=== PATIENT | male | born 1940 | race African-American/Black ===

== ENCOUNTER 2018-05-01 14:58 | Inpatient (IN) | payer OTHER ==
[~2018-05-01] VITALS: Ht 177.8 cm; Wt 83.5 kg
[2018-05-01 15:40] LABS: Basophils # (auto) 0 uL; Basophils % (auto) 0.3 % (0.0-2.0); Eosinophils # (auto) 0 uL; Hematocrit 35.6 % (41.0-53.0); Hemoglobin 11.6 g/dL (13.5-17.5); Mean Corpuscular Hgb Conc. 32.6 g/dL (32.0-36.0)
[2018-05-01 15:41] LABS: Eosinophils % (auto) 0.5 % (0.0-7.0); Lymphocytes % (auto) 12.2 % (10.0-50.0); Mean Corpuscular Hemoglobin 29.3 pg (28.0-32.0); Mean Corpuscular Volume 89.8 fL (80.0-100.0); Monocytes # (auto) 0.4 uL; Monocytes % (auto) 5.6 % (0.0-12.0); Neutrophils # (auto) 6.4 uL; Neutrophils % (auto) 81.4 % (37.0-80.0); Nucleated Red Blood Cells % 0.1 %; Platelet Count (auto) 58 10^3/uL (140-450); Red Blood Cells 3.97 10^6/uL (4.5-5.90); Red Cell Distribution Width 15.9 % (11.8-14.3); White Blood Cell 7.9 10^3/uL (4.4-10.8)
[2018-05-01 15:55] LABS: INR 1.95 (0.9-1.15); Partial Thromboplastin Time 36.1 sec (23.78-33.04); Prothrombin Time 20.1 sec (9.27-12.13)
[2018-05-01 16:00] LABS: Albumin 3.4 g/dL (3.4-5.0); BUN/Creatinine Ratio 5.9; Bilirubin, Total 0.8 mg/dL (0.2-1.0); Calcium 8.9 mg/dL (8.5-10.1); Magnesium 2.6 mg/dL (1.6-2.6); Potassium 4.4 mmol/L (3.5-5.1)
[2018-05-01] MEDS ORDERED: DEXTROSE (50%) 50ML SYRG IV PRN (16:45)
[2018-05-01] MEDS ORDERED: ONDANSETRON HCL 4 MG/2 ML VIAL IV PRN (16:45)
[2018-05-01] MEDS ORDERED: MORPHINE SULF INJ 2 MG/ML SYRINGE 1ML IV PRN (16:45)
[2018-05-01] MEDS ORDERED: NITROGLYCERIN 0.4 MG SL TAB SL PRN (16:45)
[2018-05-01] MEDS ORDERED: LOSARTAN POTASSIUM 50 MG TAB PO ONE (17:15)
[2018-05-01] MEDS: InsuLIN REG 1unit/0.01ml Soln (100units/ml) SC SCH (18:00)
[2018-05-01] MEDS: CALCIUM ACETATE 667 MG CAP PO SCH (18:24)
[2018-05-01] MEDS: ACCU-CHEK COMFORT CURVE STRIP VI SCH (18:26)
[2018-05-01 20:00] VITALS: BP 149/89
[2018-05-01] MEDS ORDERED: WARFARIN SODIUM 10 MG TAB PO ONE (20:00)
[2018-05-01 21:45] VITALS: BP 149/89
[2018-05-01] MEDS: CARVEDILOL 12.5 MG TAB PO SCH (21:59)
[2018-05-01] MEDS: ATORVASTATIN 20 MG TAB PO SCH (22:00)
[2018-05-01 22:20] LABS: Urine Bacteria NONE SEEN /hpf (None Seen); Urine Blood TRACE /uL (Negative); Urine Specific Gravity 1.009 (1.001-1.035); Urine WBC 2 /hpf (0 - 3)
[2018-05-01] MEDS ORDERED: WARF1TAB PO (23:46)
[2018-05-01] MEDS ORDERED: ATOR10TA PO (23:46)
[2018-05-01] MEDS ORDERED: LOSA25TA9 PO (23:46)
[2018-05-01] MEDS ORDERED: CALC667C5 PO (23:46)
[2018-05-01] MEDS ORDERED: CAR3125T PO (23:46)
[2018-05-02] MEDS: ACCU-CHEK COMFORT CURVE STRIP VI SCH ×5 (00:09→23:57)
[2018-05-02] MEDS: InsuLIN REG 1unit/0.01ml Soln (100units/ml) SC SCH ×5 (00:10→23:57)
[2018-05-02 05:00] VITALS: BP 138/61
[2018-05-02 06:17] LABS: Basophils # (auto) 0 uL; Basophils % (auto) 0.5 % (0.0-2.0); Eosinophils # (auto) 0 uL; Hemoglobin 11.9 g/dL (13.5-17.5); Lymphocytes # (auto) 1.1 uL; Lymphocytes % (auto) 17.5 % (10.0-50.0); Mean Corpuscular Hemoglobin 29.5 pg (28.0-32.0); Mean Corpuscular Volume 89.4 fL (80.0-100.0); Monocytes # (auto) 0.7 uL; Monocytes % (auto) 10.4 % (0.0-12.0); Neutrophils # (auto) 4.7 uL; Neutrophils % (auto) 71.6 % (37.0-80.0); Nucleated Red Blood Cells % 0.1 %; Platelet Count (auto) 79 10^3/uL (140-450); Red Blood Cells 4.02 10^6/uL (4.5-5.90); Red Cell Distribution Width 15.7 % (11.8-14.3); White Blood Cell 6.5 10^3/uL (4.4-10.8)
[2018-05-02 06:30] LABS: INR 2.07 (0.9-1.15); Prothrombin Time 21.3 sec (9.27-12.13)
[2018-05-02 06:32] LABS: Potassium 5.2 mmol/L (3.5-5.1)
[2018-05-02 06:33] LABS: BUN/Creatinine Ratio 6.2; Calcium 9.3 mg/dL (8.5-10.1)
[2018-05-02 07:49] VITALS: BP 136/73
[2018-05-02] MEDS: CALCIUM ACETATE 667 MG CAP PO SCH ×3 (07:56→18:29)
[2018-05-02] MEDS: CARVEDILOL 12.5 MG TAB PO SCH ×2 (07:56→22:04)
[2018-05-02] MEDS: LOSARTAN POTASSIUM 50 MG TAB PO SCH (07:57)
[2018-05-02 12:13] VITALS: BP 120/75
[2018-05-02] MEDS ORDERED: cefTRIAXone 1GM/10ml IVPUSH 10 ML IV ONE (12:45)
[2018-05-02] MEDS ORDERED: AZITHROMYCIN 500MG/ 250ML 250 ML IV ONE (12:45)
[2018-05-02] MEDS ORDERED: WARFARIN SODIUM 10 MG TAB PO ONE (17:00)
[2018-05-02 17:18] VITALS: BP 111/62
[2018-05-02 21:07] VITALS: BP 124/82
[2018-05-02] MEDS: ATORVASTATIN 20 MG TAB PO SCH (22:03)
[2018-05-03] VITALS (7 sets, daily range): BP systolic 109–144; BP diastolic 69–98
[2018-05-03] MEDS: ACCU-CHEK COMFORT CURVE STRIP VI SCH ×3 (05:56→17:42)
[2018-05-03] MEDS: InsuLIN REG 1unit/0.01ml Soln (100units/ml) SC SCH ×3 (05:56→17:42)
[2018-05-03 06:01] LABS: INR 3.18 (0.9-1.15); Prothrombin Time 31.9 sec (9.27-12.13)
[2018-05-03] MEDS: CALCIUM ACETATE 667 MG CAP PO SCH ×3 (08:15→18:18)
[2018-05-03] MEDS: cefTRIAXone 1GM/10ml IVPUSH 10 ML IV SCH (08:16)
[2018-05-03 10:10] LABS: Basophils # (auto) 0 uL; Eosinophils # (auto) 0 uL; Hematocrit 34.7 % (41.0-53.0); Hemoglobin 11.3 g/dL (13.5-17.5); Mean Corpuscular Hgb Conc. 32.6 g/dL (32.0-36.0); Monocytes # (auto) 0.8 uL
[2018-05-03 10:12] LABS: Basophils % (auto) 0.7 % (0.0-2.0); Eosinophils % (auto) 0.8 % (0.0-7.0); Lymphocytes # (auto) 1.2 uL; Lymphocytes % (auto) 22.2 % (10.0-50.0); Mean Corpuscular Hemoglobin 29.2 pg (28.0-32.0); Mean Corpuscular Volume 89.5 fL (80.0-100.0); Monocytes % (auto) 14.1 % (0.0-12.0); Neutrophils # (auto) 3.5 uL; Neutrophils % (auto) 62.2 % (37.0-80.0); Nucleated Red Blood Cells % 0.3 %; Platelet Count (auto) 61 10^3/uL (140-450); Red Blood Cells 3.88 10^6/uL (4.5-5.90); Red Cell Distribution Width 16.3 % (11.8-14.3); White Blood Cell 5.6 10^3/uL (4.4-10.8)
[2018-05-03 10:27] LABS: Albumin 3.2 g/dL (3.4-5.0); BUN/Creatinine Ratio 5.4; Bilirubin, Total 0.5 mg/dL (0.2-1.0); Calcium 8.8 mg/dL (8.5-10.1); Potassium 4.6 mmol/L (3.5-5.1); Total Protein 6.7 g/dL (6.4-8.2)
[2018-05-03] MEDS ORDERED: SODIUM CHL 0.9% 1000 ML BAG XX ONE (12:00)
[2018-05-03] MEDS: LOSARTAN POTASSIUM 50 MG TAB PO SCH (12:34)
[2018-05-03] MEDS: AZITHROMYCIN 500MG/ 250ML 250 ML IV SCH (12:34)
[2018-05-03] MEDS: CARVEDILOL 12.5 MG TAB PO SCH ×2 (12:35→22:22)
[2018-05-03] MEDS: ACETAMINOPHEN 500 MG TAB PO PRN (13:52)
[2018-05-03] MEDS: ATORVASTATIN 20 MG TAB PO SCH (22:22)
[2018-05-04] MEDS: InsuLIN REG 1unit/0.01ml Soln (100units/ml) SC SCH ×4 (01:00→18:00)
[2018-05-04] MEDS: ACCU-CHEK COMFORT CURVE STRIP VI SCH ×4 (01:00→18:03)
[2018-05-04 05:13] VITALS: BP 134/69
[2018-05-04 08:30] VITALS: BP 158/84
[2018-05-04] MEDS: CALCIUM ACETATE 667 MG CAP PO SCH ×3 (08:37→18:20)
[2018-05-04] MEDS: cefTRIAXone 1GM/10ml IVPUSH 10 ML IV SCH (08:46)
[2018-05-04] MEDS: AZITHROMYCIN 500MG/ 250ML 250 ML IV SCH (09:57)
[2018-05-04] MEDS: LOSARTAN POTASSIUM 50 MG TAB PO SCH (09:58)
[2018-05-04] MEDS: CARVEDILOL 12.5 MG TAB PO SCH (09:58)
[2018-05-04] MEDS: ACETAMINOPHEN 500 MG TAB PO PRN (10:16)
[2018-05-04 13:18] VITALS: BP 102/66
[2018-05-04 16:33] VITALS: BP 124/69
== END 2018-05-04 20:00 | disposition short-term general hospital (02) | DRG 871 ==
LOC: ER 14:58 → TELE 14:59 → TELE-EAST 20:00
PROVIDERS: ADMIT Internal Medicine; ATTEND Family Medicine
PROC: 5A1D70Z Performance of Urinary Filtration, Intermittent, Less than 6 Hours Per Day (ICD-10-PCS; principal; 2018-05-02)
PROC: 5A1D70Z Performance of Urinary Filtration, Intermittent, Less than 6 Hours Per Day (ICD-10-PCS; 2018-05-03)
DX: A41.9 Sepsis, unspecified organism (principal); G93.41 Metabolic encephalopathy; I50.43 Acute on chronic combined systolic (congestive) and diastolic (congestive) heart failure; N18.6 End stage renal disease; J18.9 Pneumonia, unspecified organism; I13.2 Hypertensive heart and chronic kidney disease with heart failure and with stage 5 chronic kidney disease, or end stage renal disease; E78.5 Hyperlipidemia, unspecified; E87.5 Hyperkalemia; D69.6 Thrombocytopenia, unspecified; E11.22 Type 2 diabetes mellitus with diabetic chronic kidney disease; E78.00 Pure hypercholesterolemia, unspecified; E87.8 Other disorders of electrolyte and fluid balance, not elsewhere classified; F17.200 Nicotine dependence, unspecified, uncomplicated; I05.0 Rheumatic mitral stenosis; I48.91 Unspecified atrial fibrillation; I25.10 Atherosclerotic heart disease of native coronary artery without angina pectoris; Z99.2 Dependence on renal dialysis
CPT/HCPCS: 36415; 70450; 71045; 80048; 80053; 81001; 82962; 83036; 83735; 83880; 84484; 85025; 85610; 85730; 87040; 87081; 90935; 93005; 93306; 93970; J0696; J1815; J2405

== ENCOUNTER 2018-05-10 16:50 | Emergency (ER) | payer OTHER ==
[~2018-05-10] VITALS: Ht 177.8 cm; Wt 81.6 kg
[~2018-05-10 16:50] MED LIST: ATOR10TA PO; CALC667C5 PO; CAR3125T PO; LOSA25TA9 PO; WARF1TAB PO
[2018-05-10 17:15] VITALS: BP 154/100
[2018-05-10 17:30] LABS: Basophils # (auto) 0.1 uL; Eosinophils # (auto) 0.1 uL; Mean Corpuscular Hemoglobin 29.2 pg (28.0-32.0); Monocytes # (auto) 0.8 uL; Nucleated Red Blood Cells % 0.3 %; Platelet Count (auto) 53 10^3/uL (140-450)
[2018-05-10 17:32] LABS: Basophils % (auto) 1.3 % (0.0-2.0); Eosinophils % (auto) 1.6 % (0.0-7.0); Hematocrit 36.5 % (41.0-53.0); Lymphocytes # (auto) 1.2 uL; Lymphocytes % (auto) 16.9 % (10.0-50.0); Mean Corpuscular Hgb Conc. 32.8 g/dL (32.0-36.0); Monocytes % (auto) 11.2 % (0.0-12.0); Neutrophils # (auto) 4.8 uL; Red Cell Distribution Width 16.4 % (11.8-14.3)
[2018-05-10 17:42] LABS: INR 1.58 (0.9-1.15); Partial Thromboplastin Time 31.4 sec (23.78-33.04); Prothrombin Time 16.5 sec (9.27-12.13)
[2018-05-10 17:44] LABS: Albumin 3.3 g/dL (3.4-5.0); Calcium 8.6 mg/dL (8.5-10.1); Potassium 3.9 mmol/L (3.5-5.1)
[2018-05-10 17:47] LABS: BUN/Creatinine Ratio 5.8
[2018-05-10 17:53] LABS: Bilirubin, Total 0.8 mg/dL (0.2-1.0); Total Protein 7.1 g/dL (6.4-8.2)
== END 2018-05-10 20:33 | disposition left against medical advice (07) ==
LOC: EDBD 16:50 → ER 16:50
DX: G93.41 Metabolic encephalopathy (principal); I48.91 Unspecified atrial fibrillation; I12.0 Hypertensive chronic kidney disease with stage 5 chronic kidney disease or end stage renal disease; E11.22 Type 2 diabetes mellitus with diabetic chronic kidney disease; N18.6 End stage renal disease
CPT/HCPCS: 36415; 70450; 71045; 80053; 83880; 84484; 85025; 85610; 85730

== ENCOUNTER 2018-08-07 07:23 | Emergency (ER) | payer OTHER ==
[~2018-08-07] VITALS: Ht 177.8 cm; Wt 79.4 kg
[~2018-08-07 07:23] MED LIST changes: +LOSA25TA40 PO; -LOSA25TA9 PO
[2018-08-07] MEDS ORDERED: ONDANSETRON HCL 4 MG/2 ML VIAL IV ONE (08:30)
[2018-08-07 09:37] LABS: Basophils # (auto) 0.1 uL; Eosinophils # (auto) 0 uL; Eosinophils % (auto) 0.4 % (0.0-7.0); Hematocrit 36.8 % (41.0-53.0); Lymphocytes # (auto) 0.6 uL; Mean Corpuscular Hemoglobin 28.9 pg (28.0-32.0); Mean Corpuscular Hgb Conc. 32.6 g/dL (32.0-36.0); Mean Corpuscular Volume 88.8 fL (80.0-100.0); Monocytes # (auto) 0.6 uL; Monocytes % (auto) 8.2 % (0.0-12.0); Neutrophils # (auto) 5.6 uL; Neutrophils % (auto) 81.4 % (37.0-80.0); Nucleated Red Blood Cells % 0.1 %; Platelet Count (auto) 113 10^3/uL (140-450); Red Blood Cells 4.14 10^6/uL (4.5-5.90); Red Cell Distribution Width 19.4 % (11.8-14.3); White Blood Cell 6.9 10^3/uL (4.4-10.8)
[2018-08-07 09:57] LABS: Albumin 3.7 g/dL (3.4-5.0); BUN/Creatinine Ratio 5.6; Calcium 7.6 mg/dL (8.5-10.1); Potassium 4.8 mmol/L (3.5-5.1)
[2018-08-07 09:58] LABS: INR 2.84 (0.9-1.15); Partial Thromboplastin Time 41.1 sec (23.78-33.04); Prothrombin Time 28.6 sec (9.27-12.13)
[2018-08-07 10:02] LABS: Bilirubin, Total 0.8 mg/dL (0.2-1.0); Total Protein 7.2 g/dL (6.4-8.2)
[2018-08-07 13:27] VITALS: BP 154/77
== END 2018-08-07 13:53 | disposition short-term general hospital (02) ==
LOC: ER 07:23 → EDBD 07:23 → ER 13:53
DX: R55 Syncope and collapse (principal); R79.89 Other specified abnormal findings of blood chemistry; I12.0 Hypertensive chronic kidney disease with stage 5 chronic kidney disease or end stage renal disease; E11.22 Type 2 diabetes mellitus with diabetic chronic kidney disease; N18.6 End stage renal disease; Z99.2 Dependence on renal dialysis; I48.91 Unspecified atrial fibrillation; E78.00 Pure hypercholesterolemia, unspecified; Z87.891 Personal history of nicotine dependence; Z79.01 Long term (current) use of anticoagulants; Z79.899 Other long term (current) drug therapy
CPT/HCPCS: 36415; 70450; 71045; 80053; 82962; 83735; 84484; 85025; 85610; 85730; 93005; 94761; 96374; 99285; J2405

== ENCOUNTER 2019-02-14 12:31 | Emergency (ER) | payer OTHER ==
[~2019-02-14] VITALS: Ht 177.8 cm; Wt 90.7 kg
[2019-02-14] MEDS ORDERED: DILTIAZEM HCL 25 MG/5 ML VIAL IV ONE (13:00)
[2019-02-14 13:20] LABS: Basophils # (auto) 0 uL; Basophils % (auto) 0.8 % (0.0-2.0); Eosinophils # (auto) 0 uL; Eosinophils % (auto) 0.5 % (0.0-7.0); Hematocrit 36.6 % (41.0-53.0); Hemoglobin 12.2 g/dL (13.5-17.5); Lymphocytes # (auto) 1.1 uL; Lymphocytes % (auto) 18.9 % (10.0-50.0); Mean Corpuscular Hgb Conc. 33.2 g/dL (32.0-36.0); Mean Corpuscular Volume 93.1 fL (80.0-100.0); Monocytes # (auto) 0.9 uL; Monocytes % (auto) 15.8 % (0.0-12.0); Neutrophils # (auto) 3.8 uL; Nucleated Red Blood Cells % 0.1 %; Platelet Count (auto) 85 10^3/uL (140-450); Red Blood Cells 3.93 10^6/uL (4.5-5.90); Red Cell Distribution Width 17.6 % (11.8-14.3); White Blood Cell 5.9 10^3/uL (4.4-10.8)
[2019-02-14 13:36] LABS: Albumin 3.7 g/dL (3.4-5.0); BUN/Creatinine Ratio 5.7; Calcium 8.9 mg/dL (8.5-10.1); Magnesium 2.2 mg/dL (1.6-2.6); Potassium 4.2 mmol/L (3.5-5.1)
[2019-02-14 13:45] LABS: Bilirubin, Total 1.2 mg/dL (0.2-1.0); Total Protein 7.8 g/dL (6.4-8.2)
[2019-02-14 18:23] LABS: INR 1.54 (0.9-1.15); Partial Thromboplastin Time 29.6 sec (23.64-32.05); Prothrombin Time 16.3 sec (9.06-12.60)
[2019-02-14 22:51] VITALS: BP 134/59
== END 2019-02-14 23:26 | disposition short-term general hospital (02) ==
LOC: EDBD 12:31 → ER 12:31
DX: R55 Syncope and collapse (principal); I48.2 Chronic atrial fibrillation; I49.3 Ventricular premature depolarization; I12.0 Hypertensive chronic kidney disease with stage 5 chronic kidney disease or end stage renal disease; E11.22 Type 2 diabetes mellitus with diabetic chronic kidney disease; N18.6 End stage renal disease; Z99.2 Dependence on renal dialysis
CPT/HCPCS: 36415; 70450; 71045; 80053; 82962; 83735; 83880; 84443; 84484; 85025; 85610; 85730; 93005; 94761; 96374; 99285; J7030

== ENCOUNTER 2019-04-23 11:10 | Emergency (ER) | payer OTHER ==
[~2019-04-23] VITALS: Ht 188 cm; Wt 86.2 kg
[~2019-04-23 11:10] MED LIST changes: +LOSA25TA38 PO; -LOSA25TA40 PO
[2019-04-23 12:09] LABS: Basophils # (auto) 0.1 uL; Eosinophils # (auto) 0 uL; Eosinophils % (auto) 0.6 % (0.0-7.0); Hematocrit 35.4 % (41.0-53.0); Hemoglobin 11.7 g/dL (13.5-17.5); Lymphocytes # (auto) 1.9 uL; Lymphocytes % (auto) 22.9 % (10.0-50.0); Mean Corpuscular Hemoglobin 30.1 pg (28.0-32.0); Mean Corpuscular Hgb Conc. 33.2 g/dL (32.0-36.0); Mean Corpuscular Volume 90.8 fL (80.0-100.0); Monocytes # (auto) 0.9 uL; Monocytes % (auto) 11.2 % (0.0-12.0); Neutrophils # (auto) 5.3 uL; Neutrophils % (auto) 64.3 % (37.0-80.0); Nucleated Red Blood Cells % 0.2 %; Platelet Count (auto) 76 10^3/uL (140-450); Red Cell Distribution Width 16.1 % (11.8-14.3); White Blood Cell 8.3 10^3/uL (4.4-10.8)
[2019-04-23 12:27] LABS: INR 1.57 (0.9-1.15); Partial Thromboplastin Time 32.2 sec (23.64-32.05)
[2019-04-23 12:35] LABS: Albumin 3.6 g/dL (3.4-5.0); Calcium 8.3 mg/dL (8.5-10.1); Magnesium 2.2 mg/dL (1.6-2.6); Potassium 4.8 mmol/L (3.5-5.1)
[2019-04-23 12:40] LABS: Bilirubin, Total 1.2 mg/dL (0.2-1.0); Total Protein 7.3 g/dL (6.4-8.2)
[2019-04-23 14:49] VITALS: BP 159/79
== END 2019-04-23 15:17 | disposition short-term general hospital (02) ==
LOC: EDBD 11:10 → ER 11:10
DX: R41.82 Altered mental status, unspecified (principal); R55 Syncope and collapse; R74.8 Abnormal levels of other serum enzymes; I12.0 Hypertensive chronic kidney disease with stage 5 chronic kidney disease or end stage renal disease; E11.22 Type 2 diabetes mellitus with diabetic chronic kidney disease; N18.6 End stage renal disease; Z99.2 Dependence on renal dialysis; I48.91 Unspecified atrial fibrillation; E78.00 Pure hypercholesterolemia, unspecified; Z95.0 Presence of cardiac pacemaker; Z87.891 Personal history of nicotine dependence; Z79.01 Long term (current) use of anticoagulants; Z79.899 Other long term (current) drug therapy
CPT/HCPCS: 36415; 70450; 71045; 80053; 83605; 83735; 84484; 85025; 85610; 85730; 87040; 93005; 94761

== ENCOUNTER 2019-06-04 06:57 | Emergency (ER) | payer OTHER ==
[~2019-06-04] VITALS: Ht 177.8 cm; Wt 83.0 kg
[2019-06-04 07:27] VITALS: BP 141/91
[2019-06-04] MEDS ORDERED: NEOMYCIN-BACITRACIN-POLYM UNITDOSE PKG TOP OINT TOP ONE (07:45)
== END 2019-06-04 08:26 | disposition home or self-care (01) ==
LOC: ER 07:01
DX: S60.422A Blister (nonthermal) of right middle finger, initial encounter (principal); E11.22 Type 2 diabetes mellitus with diabetic chronic kidney disease; I12.0 Hypertensive chronic kidney disease with stage 5 chronic kidney disease or end stage renal disease; N18.6 End stage renal disease; E78.5 Hyperlipidemia, unspecified; Z95.0 Presence of cardiac pacemaker; Z79.899 Other long term (current) drug therapy; Z87.891 Personal history of nicotine dependence; W45.8XXA Other foreign body or object entering through skin, initial encounter; Y93.89 Activity, other specified; Y92.89 Other specified places as the place of occurrence of the external cause; Y99.8 Other external cause status

== ENCOUNTER 2019-07-25 09:57 | Emergency (ER) | payer OTHER ==
[~2019-07-25] VITALS: Ht 177.8 cm; Wt 83.9 kg
[2019-07-25 10:32] LABS: Basophils # (auto) 0.1 uL; Basophils % (auto) 1.8 % (0.0-2.0); Eosinophils # (auto) 0.1 uL; Eosinophils % (auto) 1.1 % (0.0-7.0); Lymphocytes # (auto) 1.1 uL; Lymphocytes % (auto) 15.9 % (10.0-50.0); Mean Corpuscular Hemoglobin 29.9 pg (28.0-32.0); Mean Corpuscular Hgb Conc. 33.4 g/dL (32.0-36.0); Mean Corpuscular Volume 89.6 fL (80.0-100.0); Monocytes # (auto) 0.7 uL; Monocytes % (auto) 9.9 % (0.0-12.0); Neutrophils % (auto) 71.3 % (37.0-80.0); Platelet Count (auto) 89 10^3/uL (140-450); Red Blood Cells 4.02 10^6/uL (4.5-5.90); Red Cell Distribution Width 15.6 % (11.8-14.3)
[2019-07-25 10:48] LABS: Albumin 3.4 g/dL (3.4-5.0); BUN/Creatinine Ratio 6.9; Calcium 7.7 mg/dL (8.5-10.1); Potassium 4.4 mmol/L (3.5-5.1)
[2019-07-25 10:53] LABS: Bilirubin, Total 0.8 mg/dL (0.2-1.0); Total Protein 6.8 g/dL (6.4-8.2)
[2019-07-25 12:30] VITALS: BP 146/78
== END 2019-07-25 12:49 | disposition short-term general hospital (02) ==
LOC: EDBD 09:57 → ER 10:03
DX: R53.1 Weakness (principal); R42 Dizziness and giddiness; R00.2 Palpitations; E11.22 Type 2 diabetes mellitus with diabetic chronic kidney disease; I12.0 Hypertensive chronic kidney disease with stage 5 chronic kidney disease or end stage renal disease; N18.6 End stage renal disease; R11.2 Nausea with vomiting, unspecified; E78.5 Hyperlipidemia, unspecified; Z87.891 Personal history of nicotine dependence; Z95.0 Presence of cardiac pacemaker
CPT/HCPCS: 36415; 70450; 71045; 80053; 83735; 84484; 85025; 93005; 94761; 99291